=== PATIENT | female | born 1970 | race Caucasian/White ===

== ENCOUNTER → 2020-09-11 | Outpatient (CLI) | payer OTHER ==
[~2020-09-11] MED LIST: AMITRIPTYLINE H10 MG PO; CEFUROXIME500 MG PO; CETIRIZINE HCL10 MG PO; CIPRO500 MG PO; CRESTOR 10 MG T10 MG PO; CYCLOBENZAPRINE10 MG PO; DICLOFENAC SODIUM TOP; FAMOTIDINE20 MG PO; FORTAMET1000 MG PO; JANUVIA 100 MG100 MG PO; KEFLEX CAP 500500 MG PO; LAMOTRIGINE ER50 MG PO; LANTUS INS100 UTS/M1 SQ; LOSARTAN POTASS25 MG PO; MELATONIN5 M6 PO; MOBIC7.5 MG PO; NEURONTIN600 MG PO; NOVOLOG100 UNIT/1 SC; ONDANSETRON ODT4 MG SL; OZEMPIC1 MG/0.75 SQ; PERCOCET 5-3251 EACH PO; PLAQUENIL 200200 MG PO; PYRIDIUM200 MG PO; SEROQUEL200 MG PO; SINGULAIR10 MG PO; SPIRONOLACTONE50 MG PO; SYNTHROID150 MCG PO; TORADOL 10 MG T10 MG PO; TRAZODONE HCL50 MG PO; VENLAFAXINE HCL75 M1 PO; VICODIN HP 10-1 EACH PO
== END ==
LOC: LAB 11:19
DX: M25.552 Pain in left hip (principal); E11.69 Type 2 diabetes mellitus with other specified complication
CPT/HCPCS: 36415; 73522; 80061; 83036

== ENCOUNTER → 2020-10-09 | Outpatient (CLI) | payer OTHER ==
[2020-10-09 13:51] LABS: BUN/CREATININE RATIO 7 (0-10)
[2020-10-10 08:14] LABS: COMPLEMENT C3, SERUM 122 mg/dL (82-167); COMPLEMENT C4, SERUM 11 mg/dL (12-38); RHEUMATOID ARTHRITIS FACTOR <10.0 IU/mL (0.0-13.9)
[2020-10-10 14:15] LABS: ANGIOTENSIN-CONVERTING ENZYME 62 U/L (14-82); ANTI-CENTROMERE B ANTIBODIES 0.5 AI (0.0-0.9); ANTISCLERODERMA-70 ANTIBODIES <0.2 AI (0.0-0.9); RNP ANTIBODIES <0.2 AI (0.0-0.9); SJOGREN'S ANTI-SS-A <0.2 AI (0.0-0.9); SJOGREN'S ANTI-SS-B <0.2 AI (0.0-0.9); SMITH ANTIBODIES <0.2 AI (0.0-0.9)
[2020-10-11 00:07] LABS: CCP ANTIBODIES IGG/IGA 5 units (0-19)
== END ==
LOC: LAB 12:29
PROVIDERS: Internal Medicine
DX: R76.0 Raised antibody titer (principal); R93.6 Abnormal findings on diagnostic imaging of limbs; R68.89 Other general symptoms and signs; E83.42 Hypomagnesemia
CPT/HCPCS: 36415; 80053; 82164; 82728; 83520; 83735; 84100; 86038; 86160; 86200; 86235; 86431

== ENCOUNTER → 2020-10-22 | Outpatient (CLI) | payer OTHER | LOC: LAB 11:40 | DX: E11.69 Type 2 diabetes mellitus with other specified complication (principal) | CPT/HCPCS: 36415; 82947; 84681 ==

== ENCOUNTER → 2020-11-11 | Outpatient (CLI) | payer OTHER | LOC: LAB 13:58 | DX: D89.9 Disorder involving the immune mechanism, unspecified (principal); M25.50 Pain in unspecified joint; R76.8 Other specified abnormal immunological findings in serum ==

== ENCOUNTER → 2020-11-12 | Outpatient (CLI) | payer OTHER | LOC: KOH-I 14:24 | DX: J32.9 Chronic sinusitis, unspecified (principal); R51.9 Headache, unspecified | CPT/HCPCS: 70486 ==

== ENCOUNTER → 2020-12-31 | Outpatient (CLI) | payer OTHER ==
[2020-12-31 16:44] LABS: BUN/CREATININE RATIO 10 (0-10)
== END ==
LOC: LAB 13:24
PROVIDERS: Nurse Practitioner Family
DX: E11.69 Type 2 diabetes mellitus with other specified complication (principal); J30.1 Allergic rhinitis due to pollen; J30.89 Other allergic rhinitis; H93.19 Tinnitus, unspecified ear
CPT/HCPCS: 36415; 80053; 80061; 84439; 84443

== ENCOUNTER → 2021-01-28 | Outpatient (CLI) | payer OTHER | LOC: US 14:15 | DX: R22.42 Localized swelling, mass and lump, left lower limb (principal) | CPT/HCPCS: 93971 ==

== ENCOUNTER 2021-02-09 14:38 | Emergency (ER) | payer OTHER ==
[~2021-02-09 14:38] MED LIST changes: -CEFUROXIME500 MG PO; -CETIRIZINE HCL10 MG PO; -CRESTOR 10 MG T10 MG PO; -DICLOFENAC SODIUM TOP; -FAMOTIDINE20 MG PO; -JANUVIA 100 MG100 MG PO; -LOSARTAN POTASS25 MG PO; -MOBIC7.5 MG PO; -NEURONTIN600 MG PO; -ONDANSETRON ODT4 MG SL; -PLAQUENIL 200200 MG PO; -PYRIDIUM200 MG PO; -SINGULAIR10 MG PO; -TORADOL 10 MG T10 MG PO; -TRAZODONE HCL50 MG PO
[2021-02-09] MEDS ORDERED: TORADOL 10 MG T10 MG PO (15:40)
[2021-03-05] MEDS ORDERED: LANTUS INS100 UTS/M1 SQ (17:02)
[2021-03-05] MEDS ORDERED: CETIRIZINE HCL10 MG PO (17:11)
[2021-03-05] MEDS ORDERED: PLAQUENIL 200200 MG PO (17:12)
[2021-03-05] MEDS ORDERED: LOSARTAN POTASS25 MG PO (17:13)
[2021-03-05] MEDS ORDERED: TRAZODONE HCL50 MG PO (17:14)
[2021-03-05] MEDS ORDERED: CRESTOR 10 MG T10 MG PO (17:14)
[2021-03-05] MEDS ORDERED: NEURONTIN600 MG PO (17:15)
[2021-03-05] MEDS ORDERED: DICLOFENAC SODIUM TOP (17:18)
[2021-03-05] MEDS ORDERED: FAMOTIDINE20 MG PO (17:19)
[2021-03-05] MEDS ORDERED: MOBIC7.5 MG PO (17:20)
[2021-03-05] MEDS ORDERED: SINGULAIR10 MG PO (17:20)
[2021-03-05] MEDS ORDERED: JANUVIA 100 MG100 MG PO (17:21)
== END 2021-02-09 15:57 | disposition home or self-care (01) ==
LOC: ER1 14:38
DX: M25.512 Pain in left shoulder (principal); E11.9 Type 2 diabetes mellitus without complications; F17.290 Nicotine dependence, other tobacco product, uncomplicated; Z79.899 Other long term (current) drug therapy
CPT/HCPCS: 73030; 96372; 99283; J1885

== ENCOUNTER → 2021-02-22 | Outpatient (CLI) | payer OTHER ==
[~2021-02-22] MED LIST changes: +CEFUROXIME500 MG PO; +CETIRIZINE HCL10 MG PO; +CRESTOR 10 MG T10 MG PO; +DICLOFENAC SODIUM TOP; +FAMOTIDINE20 MG PO; +JANUVIA 100 MG100 MG PO; +LOSARTAN POTASS25 MG PO; +MOBIC7.5 MG PO; +NEURONTIN600 MG PO; +ONDANSETRON ODT4 MG SL; +PLAQUENIL 200200 MG PO; +PYRIDIUM200 MG PO; +SINGULAIR10 MG PO; +TORADOL 10 MG T10 MG PO; +TRAZODONE HCL50 MG PO
== END ==
LOC: MRI 09:15
DX: S42.292A Other displaced fracture of upper end of left humerus, initial encounter for closed fracture (principal)
CPT/HCPCS: 73221

== ENCOUNTER → 2021-03-05 | Outpatient (CLI) | payer OTHER ==
[2021-03-05 09:33] LABS: HEMOGLOBIN 13.9 gm/dl (12.3-15.3); RED BLOOD COUNT 4.61 M/UL (4.00-5.10); WHITE BLOOD COUNT 3.4 K/UL (4.5-11.0)
[2021-03-05 09:39] LABS: BUN/CREATININE RATIO 12 (0-10)
== END ==
LOC: OPSV2 08:00
PROVIDERS: Anesthesiology
DX: Z01.818 Encounter for other preprocedural examination (principal); R94.31 Abnormal electrocardiogram [ECG] [EKG]
CPT/HCPCS: 36415; 80048; 85025; 85610; 85730; 93005

== ENCOUNTER 2021-03-18 12:55 | Emergency (ER) | payer OTHER ==
[~2021-03-18 12:55] MED LIST changes: -CEFUROXIME500 MG PO; -ONDANSETRON ODT4 MG SL; -PYRIDIUM200 MG PO
[2021-03-18 13:55] LABS: HEMOGLOBIN 14.7 gm/dl (12.3-15.3); RED BLOOD COUNT 4.77 M/UL (4.00-5.10); WHITE BLOOD COUNT 6.1 K/UL (4.5-11.0)
[2021-03-18 14:27] LABS: BUN/CREATININE RATIO 10 (0-10)
[2021-03-18] MEDS ORDERED: CEFUROXIME500 MG PO (15:09)
[2021-03-18] MEDS ORDERED: ONDANSETRON ODT4 MG SL (15:09)
[2021-03-18] MEDS ORDERED: PYRIDIUM200 MG PO (15:09)
== END 2021-03-18 15:28 | disposition home or self-care (01) ==
LOC: ER1 12:55
PROVIDERS: Family Medicine
DX: N39.0 Urinary tract infection, site not specified (principal); K74.60 Unspecified cirrhosis of liver; E11.9 Type 2 diabetes mellitus without complications; I10 Essential (primary) hypertension; F17.290 Nicotine dependence, other tobacco product, uncomplicated; Z90.710 Acquired absence of both cervix and uterus; Z79.899 Other long term (current) drug therapy
CPT/HCPCS: 80053; 81001; 83690; 85025; 87086; 96374; 96375; 99284; J1885; J2405

== ENCOUNTER → 2021-05-06 | Outpatient (CLI) | payer OTHER ==
[~2021-05-06] MED LIST changes: +CEFUROXIME500 MG PO; +ONDANSETRON ODT4 MG SL; +PYRIDIUM200 MG PO
[2021-05-08 05:09] LABS: HBSAG SCREEN Negative (Negative); HCV AB <0.1 (0.0-0.9); HEP B CORE AB, TOT Negative (Negative)
[2021-05-12 00:06] LABS: QUANTIFERON MITOGEN VALUE >10.00 IU/mL (.); QUANTIFERON TB1 AG VALUE 0.01 IU/mL (.); QUANTIFERON TB2 AG VALUE 0.01 IU/mL (.); QUANTIFERON-TB GOLD PLUS Negative (Negative)
== END ==
LOC: LAB 15:50
PROVIDERS: Internal Medicine
DX: E11.69 Type 2 diabetes mellitus with other specified complication (principal); M19.90 Unspecified osteoarthritis, unspecified site; Z79.899 Other long term (current) drug therapy
CPT/HCPCS: 80061; 83036; 83520; 85652; 86140; 86704; 86803; 87340

== ENCOUNTER → 2021-06-17 | Outpatient (CLI) | payer OTHER | LOC: NM 05-27 10:45 → ECHO 05-27 10:45 → US 05-27 10:45 → ECHO 05-27 12:00 → NM 05-27 13:00 → ECHO 06-13 13:15 → US 06-13 14:00 → ECHO 13:02 → NM 06-19 13:00 | DX: R68.89 Other general symptoms and signs (principal); R07.9 Chest pain, unspecified | CPT/HCPCS: ECHO; 93306; 93925 ==

== ENCOUNTER → 2021-07-07 | Outpatient (CLI) | payer OTHER | LOC: KOH-I 11:24 | DX: J32.9 Chronic sinusitis, unspecified (principal); R51.9 Headache, unspecified | CPT/HCPCS: 70486 ==

== ENCOUNTER → 2021-08-04 | Outpatient (CLI) | payer OTHER | LOC: MRI 12:57 | DX: M25.552 Pain in left hip (principal); M51.27 Other intervertebral disc displacement, lumbosacral region; M16.12 Unilateral primary osteoarthritis, left hip | CPT/HCPCS: 72148; 73721 ==

== ENCOUNTER 2021-09-25 19:19 | Emergency (ER) | payer OTHER ==
[2021-09-25 20:09] LABS: HEMOGLOBIN 13.8 gm/dl (12.3-15.3); RED BLOOD COUNT 4.6 M/UL (4.00-5.10); WHITE BLOOD COUNT 10.8 K/UL (4.5-11.0)
[2021-09-25 20:34] LABS: BUN/CREATININE RATIO 17 (0-10)
== END 2021-09-26 00:23 | disposition home or self-care (01) ==
LOC: ER1 19:19
PROVIDERS: Physician Assistant
DX: E11.65 Type 2 diabetes mellitus with hyperglycemia (principal); I10 Essential (primary) hypertension; Z90.49 Acquired absence of other specified parts of digestive tract; F17.200 Nicotine dependence, unspecified, uncomplicated; Z90.710 Acquired absence of both cervix and uterus
CPT/HCPCS: 80053; 81001; 82009; 82800; 82962; 85025; 99284

== ENCOUNTER → 2021-11-05 | Outpatient (CLI) | payer OTHER ==
[~2021-11-05] MED LIST changes: +ALLERGY RELIEF5 MG PO; +CEPHALEXIN500 MG PO; +CHRONULAC20 GM/30 M PO; +CRANBERRY; -FORTAMET1000 MG PO; +HUMIRA PEN40 MG/0.4 SQ; +HYDROCODON-ACE1 EAC6 PO; +LANTUS INS100 UTS/M1 SC; +MAG6464 MG PO; +METFORMIN HCL1000 MG PO; +METOPROLOL TART25 MG PO; +MULTIPLE VITAM1 EAC1 PO; -NOVOLOG100 UNIT/1 SC; +NOVOLOG100 UNIT/1 SQ; +OMEPRAZOLE20 MG PO; +PREDNISONE20 MG PO; +SYNTHROID125 MCG PO; -SYNTHROID150 MCG PO; +TRAZODONE HCL100 MG PO; -TRAZODONE HCL50 MG PO; +VRAYLAR3 MG PO; +XIFAXAN 550 MG550 MG PO; +ZOFRAN ODT 4 MG4 MG PO
[2021-11-05 09:43] LABS: HEMOGLOBIN 12.5 gm/dl (12.3-15.3); RED BLOOD COUNT 4.18 M/UL (4.00-5.10); WHITE BLOOD COUNT 5.4 K/UL (4.5-11.0)
== END ==
LOC: OPSV2 08:30
PROVIDERS: Otolaryngology
DX: Z01.818 Encounter for other preprocedural examination (principal); E11.9 Type 2 diabetes mellitus without complications
CPT/HCPCS: 36415; 80048; 85025; 93005

== ENCOUNTER 2021-11-06 20:09 | Observation (INO) | payer OTHER ==
[~2021-11-06] VITALS: Ht 175.3 cm; Wt 113.6 kg
[~2021-11-06 20:09] MED LIST changes: -CEPHALEXIN500 MG PO; -CHRONULAC20 GM/30 M PO; -HUMIRA PEN40 MG/0.4 SQ; -MAG6464 MG PO; -PREDNISONE20 MG PO; -VRAYLAR3 MG PO; -XIFAXAN 550 MG550 MG PO; -ZOFRAN ODT 4 MG4 MG PO
[2021-11-06 21:13] LABS: HEMOGLOBIN 13.2 gm/dl (12.3-15.3); RED BLOOD COUNT 4.47 M/UL (4.00-5.10); WHITE BLOOD COUNT 3.6 K/UL (4.5-11.0)
[2021-11-06 21:33] LABS: BUN/CREATININE RATIO 19 (0-10)
[2021-11-07] MEDS ORDERED: CEPHALEXIN500 MG PO (01:03)
[2021-11-07] MEDS ORDERED: PREDNISONE20 MG PO (01:04)
[2021-11-07 04:01] LABS: BUN/CREATININE RATIO 17 (0-10)
[2021-11-07 04:09] LABS: RED BLOOD COUNT 4.35 M/UL (4.00-5.10)
[2021-11-07 04:42] LABS: WHITE BLOOD COUNT 4.9 K/UL (4.5-11.0)
[2021-11-07] MEDS ORDERED: ZOFRAN ODT 4 MG4 MG PO (10:19)
[2021-11-07] MEDS ORDERED: VRAYLAR3 MG PO (10:20)
[2021-11-07] MEDS ORDERED: MAG6464 MG PO (10:21)
[2021-11-07] MEDS ORDERED: HUMIRA PEN40 MG/0.4 SQ (10:21)
[2021-11-08] MEDS ORDERED: CHRONULAC20 GM/30 M PO (08:42)
[2021-11-08] MEDS ORDERED: XIFAXAN 550 MG550 MG PO (08:42)
== END 2021-11-08 11:55 | disposition home or self-care (01) ==
LOC: ER1 20:09 → M/S 22:04 → CDU 22:04 → M/S 11-07 00:08
PROVIDERS: Emergency Medicine; Internal Medicine; ADMIT Internal Medicine
DX: G93.41 Metabolic encephalopathy (principal); E72.20 Disorder of urea cycle metabolism, unspecified; K75.81 Nonalcoholic steatohepatitis (NASH); K74.60 Unspecified cirrhosis of liver; E86.0 Dehydration; D69.6 Thrombocytopenia, unspecified; E11.9 Type 2 diabetes mellitus without complications; E66.9 Obesity, unspecified; E83.42 Hypomagnesemia; E87.2 Acidosis; Z68.36 Body mass index [BMI] 36.0-36.9, adult; Z79.4 Long term (current) use of insulin; Z79.52 Long term (current) use of systemic steroids; Z79.84 Long term (current) use of oral hypoglycemic drugs; Z79.899 Other long term (current) drug therapy
CPT/HCPCS: 0240U; 36415; 70450; 71045; 80048; 80053; 80307; 81001; 82140; 82550; 82553; 82962; 83605; 83735; 83874; 84484; 85025; 85610; 85730; 87040; 87086; 96374; 96375; 99285; G0378; G0480; J0696; J1650; J2060; J3475; J7030